=== PATIENT | female | born 1955 | race African-American/Black ===

== ENCOUNTER 2016-11-25 01:50 | Observation (INO) | payer OTHER ==
[~2016-11-25] VITALS: Ht 165.1 cm; Wt 105.8 kg
[2016-11-25 03:30] LABS: BASOPHIL COUNT 0.1 K/uL (0-0.1); EOSINOPHIL (%) 1.5 % (0-5); EOSINOPHIL COUNT 0.2 K/uL (0-0.3); HEMATOCRIT 40.7 % (36.0-46.0); IMMATURE GRANULOCYTE (%) 0.4 % (0.0-0.7); INSTRUMENT ABS NEUTROPHIL CT 5.6 K/uL; LYMPHOCYTE COUNT 3.3 K/uL (1.0-2.8); MCH 25.1 PG (29.0-34.0); MCHC 33.9 G/DL (30.0-36.0); MCV 74.1 FL (83-99); MEAN PLAT.VOLUME 10.1 uM^3 (9.5-12.4); MONOCYTE (%) 7.9 % (3-12); MONOCYTE COUNT 0.8 K/uL (0-0.8); NEUTROPHIL (%) 56.4 % (45-76); NEUTROPHIL COUNT 5.6 K/uL (1.8-6.4); PLATELET COUNT 305 K/uL (156-360); RBC DIS.WIDTH-CV 14.8 % (11.8-14.6); RBC DIS.WIDTH-SD 38.9 % (39-53); RED BLOOD COUNT 5.49 M/uL (3.80-5.20)
[2016-11-25 03:34] LABS: CHLORIDE 102 mEq/L (99-109); POTASSIUM 4.2 mEq/L (3.7-5.4); SODIUM 139 mEq/L (136-147)
[2016-11-25 03:36] LABS: GLUCOSE 124 mg/dL (70-99)
[2016-11-25 03:37] LABS: ANION GAP 8 MEQ/L (2-14)
[2016-11-25 03:39] LABS: GFR ESTIMATE (CALCULATED) > 59 mL/min/
[2016-11-25 03:40] LABS: UREA NITROGEN (BUN) 14 mg/dL (9-23)
[2016-11-25 03:41] LABS: TROP-I INTERPRETATION NEGATIVE; TROPONIN-I < 0.01 ng/mL (0.0-0.30)
[2016-11-25] MEDS ORDERED: LOW DOSE ASPIRI81 M1 PO (08:56)
[2016-11-25] MEDS ORDERED: DITROPAN5 MG PO (08:58)
[2016-11-25] MEDS ORDERED: GLUCOPHAGE500 MG PO (09:02)
[2016-11-25] MEDS ORDERED: DESYREL 150 MG150 MG PO (09:03)
[2016-11-25] MEDS ORDERED: ADVAIR 250/501 DISK IH (09:04)
[2016-11-25] MEDS ORDERED: PROAIR HFA8.5 GM IH (09:05)
[2016-11-25] MEDS ORDERED: SPIRIVA1 INHALATI IH (09:05)
[2016-11-25] MEDS ORDERED: VENTOLIN HFA18 GM IH (09:06)
[2016-11-25 11:17] LABS: HDL CHOLESTEROL 55 MG/DL (Desirable>=50); LDL CHOLESTEROL 126 mg/dL (Desirable<100); NON-HDL CHOLESTEROL 145 mg/dL (Desirable<160); TOTAL CHOLESTEROL 200 mg/dL (Desirable<200); TRIGLYCERIDES 94 MG/DL (Normal: <150)
[2016-11-25 12:53] LABS: POINT-OF-CARE METER ID UU13113702
[2016-11-25 13:18] LABS: TROP-I INTERPRETATION NEGATIVE; TROPONIN-I < 0.01 ng/mL (0.0-0.30)
[2016-11-25 13:46] VITALS: BP 16/83
[2016-11-25 14:28] LABS: Estimated Average Glucose 137 mg/dL (70-123); HEMOGLOBIN A1c (GLYCOHEMOGLOB) 6.4 % HGB (Below 5.7)
[2016-11-25 16:44] VITALS: BP 137/75
[2016-11-25 18:06] LABS: POINT-OF-CARE METER ID UU13113700
[2016-11-25 20:06] LABS: TROP-I INTERPRETATION NEGATIVE; TROPONIN-I < 0.01 ng/mL (0.0-0.30)
[2016-11-25 20:10] VITALS: BP 128/89
[2016-11-25 22:19] VITALS: BP 132/80
[2016-11-26 00:41] VITALS: BP 138/73
[2016-11-26 04:51] VITALS: BP 135/64
[2016-11-26 07:07] VITALS: BP 146/85
== END 2016-11-26 13:14 | disposition home or self-care (01) ==
LOC: EME 01:50 → EDBD 01:50 → EDOF 10:10 → 5WEST 10:10
PROVIDERS: Emergency Medicine; Internal Medicine
DX: R07.9 Chest pain, unspecified (principal); E11.9 Type 2 diabetes mellitus without complications; J44.9 Chronic obstructive pulmonary disease, unspecified; F17.200 Nicotine dependence, unspecified, uncomplicated
CPT/HCPCS: 71010; 71250; 80048; 80061; 82948; 83036; 83880; 84484; 85025; 85379; 93005; 94640; 94640 76; 99202; 99281; 99283; G0378; J1650